=== PATIENT | male | born 1990 | race African-American/Black ===

== ENCOUNTER 2020-03-15 22:48 | Emergency (ER) | payer SELFPAY ==
[~2020-03-15] VITALS: Ht 182.9 cm; Wt 113.0 kg
[2020-03-15] MEDS ORDERED: AZITHROMYCIN 500 MG TABLET PO ONE (23:15)
[2020-03-15] MEDS ORDERED: CEFTRIAXONE SODIUM 250 MG/VIAL IM ONE (23:15)
[2020-03-15] MEDS ORDERED: LIDOCAINE HCL 1% 20ML VIAL (Pyxis) INJ INFIL ONE (23:30)
[2020-03-15 23:36] LABS: CLARITY URINE CLEAR (CLEAR); COLOR URINE YELLOW (YELLOW); KETONES URINE NEGATIVE (NEGATIVE); LEUKOCYTE ESTERASE URINE NEGATIVE (NEGATIVE); NITRITE URINE NEGATIVE (NEGATIVE); OCCULT BLOOD URINE NEGATIVE (NEGATIVE); PH URINE 5.5 (4.5-8.0); PROTEIN URINE NEGATIVE (NEGATIVE); SPECIFIC GRAVITY URINE 1.021 (1.005-1.030)
[2020-03-16 00:02] VITALS: BP 162/90
[2020-03-18 04:08] LABS: NEISSERIA GONORRHOEAE NAA Negative (Negative)
== END 2020-03-16 00:06 | disposition home or self-care (01) ==
LOC: ER 22:48
DX: Z20.2 Contact with and (suspected) exposure to infections with a predominantly sexual mode of transmission (principal); Z90.79 Acquired absence of other genital organ(s)
CPT/HCPCS: 81003; 87491; 87591; 96372; 99283; J0696; J3490

== ENCOUNTER 2020-10-06 17:59 | Emergency (ER) | payer MEDICAID ==
[~2020-10-06] VITALS: Ht 182.9 cm; Wt 98.0 kg
[2020-10-06] MEDS ORDERED: DOXY100C2 MT (20:53)
[2020-10-06] MEDS ORDERED: CEFTRIAXONE SODIUM 500 MG/VIAL IM ONE (21:00)
[2020-10-06 21:10] VITALS: BP 138/91
== END 2020-10-06 21:15 | disposition home or self-care (01) ==
LOC: ER 17:59
DX: N34.2 Other urethritis (principal); Z98.890 Other specified postprocedural states; Z79.899 Other long term (current) drug therapy
CPT/HCPCS: 96372; 99283; J0696

== ENCOUNTER 2021-05-08 11:15 | Emergency (ER) | payer MEDICAID ==
[~2021-05-08] VITALS: Ht 182.9 cm; Wt 98.0 kg
[~2021-05-08 11:15] MED LIST: DOXY100C5 MT
[2021-05-08] MEDS ORDERED: CEFTRIAXONE SODIUM 500 MG/VIAL IM NR (14:30)
[2021-05-08] MEDS ORDERED: LIDOCAINE HCL/PF 1% 10 MG/ML 5ML VIAL INFIL NR (14:30)
[2021-05-08 14:43] LABS: CLARITY URINE CLEAR (CLEAR); COLOR URINE YELLOW (YELLOW); KETONES URINE TRACE (NEGATIVE); LEUKOCYTE ESTERASE URINE TRACE (NEGATIVE); NITRITE URINE NEGATIVE (NEGATIVE); OCCULT BLOOD URINE NEGATIVE (NEGATIVE); PROTEIN URINE NEGATIVE (NEGATIVE); SPECIFIC GRAVITY URINE 1.021 (1.005-1.030)
[2021-05-08] MEDS ORDERED: DOXY-326 MT (14:56)
[2021-05-08 15:08] VITALS: BP 127/74
== END 2021-05-08 15:09 | disposition home or self-care (01) ==
LOC: ER 11:15
DX: N34.2 Other urethritis (principal)
CPT/HCPCS: 81003; 96372; 99283; J0696; J3490

== ENCOUNTER 2022-02-07 01:23 | Emergency (ER) | payer MEDICAID ==
[~2022-02-07] VITALS: Ht 182.9 cm; Wt 97.0 kg
[~2022-02-07 01:23] MED LIST changes: +DOXY-326 MT
[2022-02-07 01:58] VITALS: BP 135/85
[2022-02-07] MEDS ORDERED: AZITHROMYCIN 500 MG TABLET PO ONE (03:30)
[2022-02-07] MEDS ORDERED: CEFTRIAXONE SODIUM 500 MG/VIAL IM ONE (03:30)
[2022-02-07 05:15] LABS: CLARITY URINE CLEAR (CLEAR); COLOR URINE YELLOW (YELLOW); KETONES URINE TRACE (NEGATIVE); LEUKOCYTE ESTERASE URINE 1+ (NEGATIVE); NITRITE URINE NEGATIVE (NEGATIVE); OCCULT BLOOD URINE NEGATIVE (NEGATIVE); PH URINE 5.5 (4.5-8.0); PROTEIN URINE TRACE (NEGATIVE); SPECIFIC GRAVITY URINE 1.032 (1.005-1.030)
[2022-02-07] MEDS ORDERED: AZITHROMYCIN 500 MG TABLET PO NR (06:00)
[2022-02-07] MEDS ORDERED: CEFTRIAXONE SODIUM 500 MG/VIAL IM NR (06:00)
[2022-02-09 04:08] LABS: NEISSERIA GONORRHOEAE NAA Negative (Negative)
== END 2022-02-07 06:06 | disposition home or self-care (01) ==
LOC: ER 01:23
DX: A56.8 Sexually transmitted chlamydial infection of other sites (principal)
CPT/HCPCS: 81003; 87491; 87591; 96372; 99283; J0696

== ENCOUNTER 2023-05-15 02:07 | Emergency (ER) | payer MEDICAID ==
[~2023-05-15] VITALS: Ht 182.9 cm; Wt 99.0 kg
[~2023-05-15 02:07] MED LIST changes: -DOXY-326 MT; +DOXY-456 MT
[2023-05-15 02:32] VITALS: BP 134/77; PULSE 104; RESP 15; TEMP 98.7; O2SAT 98
[2023-05-15] MEDS ORDERED: DOXY100T2 MT (02:49)
[2023-05-15] MEDS ORDERED: CEFTRIAXONE SODIUM 1 G/VIAL IM ONE (03:00)
[2023-05-15 03:43] LABS: CLARITY URINE CLEAR (CLEAR); COLOR URINE YELLOW (YELLOW); GLUCOSE URINE NEGATIVE (NEGATIVE); KETONES URINE NEGATIVE (NEGATIVE); LEUKOCYTE ESTERASE URINE NEGATIVE (NEGATIVE); NITRITE URINE NEGATIVE (NEGATIVE); OCCULT BLOOD URINE NEGATIVE (NEGATIVE); PROTEIN URINE NEGATIVE (NEGATIVE); SPECIFIC GRAVITY URINE 1.019 (1.005-1.030)
== END 2023-05-15 03:03 | disposition home or self-care (01) ==
LOC: ER 02:07
DX: Z20.2 Contact with and (suspected) exposure to infections with a predominantly sexual mode of transmission (principal)
CPT/HCPCS: 81003; 96372; 99283; J0696; Z7610 ×2